=== PATIENT | male | born 1995 | race Caucasian/White ===

== ENCOUNTER 2016-11-17 15:31 | Emergency (ER) | payer MEDICAID ==
[~2016-11-17] VITALS: Ht 177.8 cm; Wt 69.4 kg
[2016-11-17 15:31] VITALS: BP 132/79
== END 2016-11-17 16:38 ==
LOC: EDBD 15:31 → ED 16:20
DX: S62.336A Displaced fracture of neck of fifth metacarpal bone, right hand, initial encounter for closed fracture (principal); V00.131A Fall from skateboard, initial encounter; Y93.51 Activity, roller skating (inline) and skateboarding; Y92.89 Other specified places as the place of occurrence of the external cause; Y99.8 Other external cause status
CPT/HCPCS: 29125; 99284

== ENCOUNTER 2016-11-28 18:43 | Emergency (ER) | payer SELFPAY ==
[~2016-11-28] VITALS: Ht 177.8 cm; Wt 69.5 kg
[2016-11-28 18:45] VITALS: BP 135/77
[2016-11-28] MEDS ORDERED: AZITHROMYCIN 500 MG TABLET ONE (19:13)
[2016-11-28] MEDS ORDERED: CEFTRIAXONE 250 MG ONE ×2 (19:13→19:46)
[2016-11-28] MEDS ORDERED: CEFTRIAXONE 250 MG IM ONE (19:30)
[2016-11-28] MEDS ORDERED: AZITHROMYCIN 500 MG TABLET PO ONE (19:30)
[2016-11-28 19:41] LABS: PATH.CAST-FLAG NOT PRESENT; SPERM-FLAG NOT PRESENT; SRC-FLAG NOT PRESENT; XTAL-FLAG NOT PRESENT; YLC-FLAG NOT PRESENT
[2016-11-28] MEDS ORDERED: AZITHROMYCIN 250 MG TABLET ONE (19:49)
== END 2016-11-28 20:03 | disposition home or self-care (01) ==
LOC: ED 19:55
DX: R36.9 Urethral discharge, unspecified (principal); Z88.0 Allergy status to penicillin
CPT/HCPCS: 81001; 87086; 87491; 87591; 96372; 99284; J0696

== ENCOUNTER 2018-02-19 16:59 | Emergency (ER) | payer SELFPAY ==
[2018-02-19 17:07] VITALS: BP 142/98
[2018-02-19] MEDS ORDERED: ALBUTEROL/IPRATROPIUM 2.5MG/0.5MG, 3 ML ONE (17:22)
[2018-02-19] MEDS ORDERED: ALBUTEROL/IPRATROPIUM 2.5MG/0.5MG, 3 ML NEB ONE (17:30)
== END 2018-02-19 18:24 ==
LOC: ED 18:18
DX: J18.9 Pneumonia, unspecified organism (principal)
CPT/HCPCS: 71046; 94640; 99283; J7620

== ENCOUNTER 2018-04-14 13:14 | Emergency (ER) | payer OTHER ==
[~2018-04-14] VITALS: Ht 175.3 cm; Wt 88.8 kg
[2018-04-14] MEDS ORDERED: KETOROLAC 30 MG/1 ML IM ONE (14:00)
[2018-04-14] MEDS ORDERED: DIAZEPAM 5 MG TABLET PO ONE (14:00)
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
[2018-04-14] MEDS ORDERED: KETOROLAC 30 MG/1 ML ONE (14:08)
[2018-04-14] MEDS ORDERED: DIAZEPAM 5 MG TABLET ONE (14:10)
[2018-04-14 14:30] VITALS: BP 107/64
--- NOTE | 2018-04-14 14:37 | NUR ---
PT TO CT
--- NOTE | 2018-04-14 14:37 | NUR ---
PT RESTING ON GURNEY, RESPS EVEN AND UNLABORED. LAUGHING WITH FRIEND. NO NEEDS AT THIS TIME. C SPINE PRECAUTIONS MAINTAINED.
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
== END 2018-04-14 15:51 | disposition home or self-care (01) ==
LOC: ED 15:30
DX: S16.1XXA Strain of muscle, fascia and tendon at neck level, initial encounter (principal); X58.XXXA Exposure to other specified factors, initial encounter; Y93.89 Activity, other specified; Y92.89 Other specified places as the place of occurrence of the external cause; Y99.8 Other external cause status; R51 Headache
CPT/HCPCS: 70450; 72125; 96372; 99284; J1885

== ENCOUNTER 2018-04-15 01:16 | Emergency (ER) | payer MEDICAID, OTHER ==
[~2018-04-15] VITALS: Ht 175.3 cm; Wt 91.9 kg
[2018-04-15 01:19] VITALS: BP 136/72
[2018-04-15] MEDS ORDERED: AZITHROMYCIN 250 MG TABLET PO STA (02:22)
[2018-04-15] MEDS ORDERED: CEFTRIAXONE 250 MG IM ONE (02:30)
[2018-04-15] MEDS ORDERED: AZITHROMYCIN 500 MG TABLET ONE (02:34)
[2018-04-15] MEDS ORDERED: CEFTRIAXONE 250 MG ONE (02:34)
--- NOTE | 2018-04-15 02:41 | NUR ---
Pt medicated per MAR.
== END 2018-04-15 02:53 | disposition home or self-care (01) ==
LOC: ED 02:41
DX: A56.01 Chlamydial cystitis and urethritis (principal); A54.01 Gonococcal cystitis and urethritis, unspecified; Z87.01 Personal history of pneumonia (recurrent)
CPT/HCPCS: 87491; 87591; 96372; 99283; J0696

== ENCOUNTER 2018-09-02 01:52 | Emergency (ER) | payer MEDICAID ==
[~2018-09-02] VITALS: Ht 175.3 cm; Wt 85.0 kg
[2018-09-02 01:53] VITALS: BP 131/70
[2018-09-02] MEDS ORDERED: APIX5TAB PO (01:58)
[2018-09-02] MEDS ORDERED: ONDANSETRON 4 MG TABLET PO ONE (02:00)
[2018-09-02] MEDS ORDERED: MAALOX/HYOSCYAMINE/LIDOCAINE 45 ML BTL PO ONE (03:00)
--- NOTE | 2018-09-02 03:04 | NUR ---
PT TO US VIA SANYA
[2018-09-02 04:00] LABS: BASOPHILS # (AUTO) 0.03 x10^3/uL (0-0.1); BASOPHILS % (AUTO) 0 % (0-1); EOSINOPHILS # (AUTO) 0.11 x10^3/uL (0-0.4); EOSINOPHILS % (AUTO) 1 % (1-7); LYMPHOCYTES # (AUTO) 1.96 x10^3/uL (1-3.4); LYMPHOCYTES % (AUTO) 19 % (22-44); MD NO; MEAN CORPUSCULAR HEMOGLOBIN 31.2 pg (27.5-34.5); MEAN CORPUSCULAR HGB CONC 33.9 g/dL (33.2-36.2); MEAN PLATELET VOLUME 8.4 fL (7.4-10.4); MONOCYTES # (AUTO) 0.65 x10^3/uL (0.2-0.8); MONOCYTES % (AUTO) 6 % (2-9); NEUTROPHILS # (AUTO) 7.54 x10^3/uL (1.8-6.8); NEUTROPHILS % (AUTO) 73 % (42-75); PLATELET COUNT 229 x10^3/uL (130-400); RED BLOOD COUNT 4.87 x10^6/uL (4.38-5.82); RED CELL DISTRIBUTION WIDTH 12.8 % (9.4-14.8)
[2018-09-02 04:06] LABS: ALANINE AMINOTRANSFERASE 29 U/L (12-78); ALBUMIN 4.2 g/dL (3.4-5.0); ANION GAP 4 mmol/L (5-15); CALCIUM 9.4 mg/dL (8.5-10.1); CHLORIDE 105 mmol/L (98-107); CREATININE 0.96 mg/dL (0.7-1.3)
[2018-09-02 04:08] LABS: ALKALINE PHOSPHATASE 93 U/L (45-117); BILIRUBIN,TOTAL 0.8 mg/dL (0.2-1.0)
[2018-09-02] MEDS ORDERED: KETOROLAC 30 MG/1 ML ONE (04:12)
[2018-09-02] MEDS ORDERED: MAALOX/HYOSCYAMINE/LIDOCAINE 45 ML BTL ONE (04:12)
--- NOTE | 2018-09-02 04:26 | NUR ---
BREAK RN: PT SLEEPING WITH RESP EVEN AND UNLABORED. NO S/S OF ACUTE DISTRESS. NO MEDS GIVEN AT THIS TIME.
[2018-09-02] MEDS ORDERED: KETOROLAC 30 MG/1 ML IM ONE (04:30)
--- NOTE | 2018-09-02 04:50 | NUR ---
GI COCKTAIL GIVEN AT THIS TIME. PT AWARE OF DISCHARGE INSTRUCITONS AND USE OF MEDICAITONS. PLEASANT YOUNG MAN, AMBULATE OUT WITH STEADY GAIT
== END 2018-09-02 04:53 | disposition home or self-care (01) ==
LOC: ED 03:00
DX: K29.00 Acute gastritis without bleeding (principal)
CPT/HCPCS: 36415; 71046; 76700; 80053; 83690; 85025; 93005; 99284; Q0162

== ENCOUNTER 2018-10-03 03:06 | Inpatient (IN) | payer MEDICAID ==
[~2018-10-03] VITALS: Ht 177.8 cm; Wt 87.0 kg
[2018-10-03 19:51] VITALS: BP 130/85
== END 2018-10-04 00:10 | disposition left against medical advice (07) | DRG 134 ==
LOC: ED 05:41 → EDIP 06:36 → 4WST 12:07
PROVIDERS: ADMIT Internal Medicine; ATTEND Internal Medicine
DX: I26.99 Other pulmonary embolism without acute cor pulmonale (principal); J96.00 Acute respiratory failure, unspecified whether with hypoxia or hypercapnia; D68.69 Other thrombophilia; R07.89 Other chest pain; Z82.49 Family history of ischemic heart disease and other diseases of the circulatory system; Z86.711 Personal history of pulmonary embolism; Z86.718 Personal history of other venous thrombosis and embolism; Z95.820 Peripheral vascular angioplasty status with implants and grafts
CPT/HCPCS: 36415; 71045; 71275; 80048; 80307; 82040; 84484; 85025; 85379; 85520; 85610; 85730; 93005; 96374; 96375; 99285; G0378; J1644; J1885; J2405; Q9967; J2270

== ENCOUNTER 2019-08-27 13:08 | Emergency (ER) | payer MEDICAID ==
[~2019-08-27] VITALS: Ht 175.3 cm; Wt 80.3 kg
[~2019-08-27 13:08] MED LIST: APIX5TAB PO
[2019-08-27] MEDS ORDERED: SODIUM CHLORIDE FLUSH 10ML SYR IVF ONE (14:00)
[2019-08-27 14:07] LABS: BASOPHILS # (AUTO) 0.02 x10^3/uL (0-0.1); BASOPHILS % (AUTO) 0 % (0-1); EOSINOPHILS # (AUTO) 0.09 x10^3/uL (0-0.4); EOSINOPHILS % (AUTO) 1 % (1-7); LYMPHOCYTES # (AUTO) 1.36 x10^3/uL (1-3.4); LYMPHOCYTES % (AUTO) 18 % (22-44); MD NO; MEAN CORPUSCULAR HEMOGLOBIN 30.6 pg (27.5-34.5); MEAN CORPUSCULAR HGB CONC 34.2 g/dL (33.2-36.2); MEAN PLATELET VOLUME 8.3 fL (7.4-10.4); MONOCYTES # (AUTO) 0.36 x10^3/uL (0.2-0.8); MONOCYTES % (AUTO) 5 % (2-9); NEUTROPHILS # (AUTO) 5.72 x10^3/uL (1.8-6.8); NEUTROPHILS % (AUTO) 76 % (42-75); PLATELET COUNT 314 x10^3/uL (130-400); RED BLOOD COUNT 4.95 x10^6/uL (4.38-5.82)
[2019-08-27 14:18] LABS: ALANINE AMINOTRANSFERASE 34 U/L (12-78); ALBUMIN 4.2 g/dL (3.4-5.0); ANION GAP 6 mmol/L (5-15); CALCIUM 9.3 mg/dL (8.5-10.1); CHLORIDE 106 mmol/L (98-107); CREATININE 0.99 mg/dL (0.7-1.3)
[2019-08-27 14:22] LABS: ALKALINE PHOSPHATASE 94 U/L (45-117); BILIRUBIN,TOTAL 0.6 mg/dL (0.2-1.0); TOTAL PROTEIN 7.6 g/dL (6.4-8.2); TROPONIN I < 0.015 ng/mL (0.000-0.045)
--- NOTE | 2019-08-27 14:42 | NUR ---
BREAK RN: PT UPRIGHT ON SANYA AWAKE & COMFORTABLE, RESPONDS APPROP TO STAFF, NAD/NO RESP DISTRESS, COMFORT MEASURES PROVIDED, CALL LIGHT WITHIN REACH. Addendum: 08/27/19 at 1446 by TC BREAK RN: PT UPRIGHT ON SANYA CALMLY RESTING WITH EYES CLOSED, RESPONDS APPROP TO STAFF, NO NEEDS AT THIS TIME, CALL LIGHT WITHIN REACH.
--- NOTE | 2019-08-27 15:31 | NUR ---
Pt transfered on gurjacqui to CT. HERNANDEZ. No needs expressed.
--- NOTE | 2019-08-27 15:42 | NUR ---
Pt back to room from CT. HERNANDEZ.
[2019-08-27] MEDS ORDERED: ACETAMINOPHEN 500 MG TABLET ONE (15:50)
--- NOTE | 2019-08-27 15:55 | NUR ---
Provided medications per EMAR. Pt appreciative. NADN. No other needs expressed. Call light within reach.
[2019-08-27] MEDS ORDERED: OMNIPAQUE 350 MG/ML, 75ML BOTTLE ONE (15:59)
[2019-08-27] MEDS ORDERED: ACETAMINOPHEN 500 MG TABLET PO ONE (16:00)
--- NOTE | 2019-08-27 17:51 | NUR ---
Patient given discharge instructions and they have confirmed that they understand the instructions. Patient ambulatory with steady gait. Pt left with d/c paperwork and all personal belongings. NADN. No needs expressed.
[2019-08-27 17:52] VITALS: BP 109/54
== END 2019-08-27 17:53 | disposition home or self-care (01) ==
LOC: ED 17:38
DX: R07.89 Other chest pain (principal); R91.1 Solitary pulmonary nodule; R94.31 Abnormal electrocardiogram [ECG] [EKG]; Z86.718 Personal history of other venous thrombosis and embolism
CPT/HCPCS: 36415; 71045; 71275; 80053; 84484; 85025; 93005; 99285; Q9967

== ENCOUNTER 2019-09-10 12:47 | Emergency (ER) | payer MEDICAID ==
[~2019-09-10] VITALS: Ht 175.3 cm; Wt 80.0 kg
[2019-09-10 13:15] VITALS: BP 128/74
--- NOTE | 2019-09-10 14:11 | NUR ---
pt seen and examined by more rodas, pt given dc instructions, script and wound care education. pt educated regarding rx for bactrim and keflex. pt a&o, resps even and unlabored, ambulatory to dc desk with steady gait. all questions answered.
== END 2019-09-10 14:08 | disposition home or self-care (01) ==
LOC: ED 13:35
DX: L03.113 Cellulitis of right upper limb (principal); I80.8 Phlebitis and thrombophlebitis of other sites; Z86.718 Personal history of other venous thrombosis and embolism
CPT/HCPCS: 99284

== ENCOUNTER 2019-09-18 02:37 | Emergency (ER) | payer MEDICAID ==
[2019-09-18 02:41] VITALS: BP 109/70
--- NOTE | 2019-09-18 02:46 | NUR ---
pt ambulates from triage to room with steady gait.
--- NOTE | 2019-09-18 04:06 | NUR ---
PT D/C WITH D/C SUMMARY AND SCRIPTS. ALL QUESTIONS ANSWERED. PT AMBULATES TO REGISTRATION DESK WITH STEADY GAIT FOR D/C HOME. PT DENIES ANY OTHER NEEDS PERTAINING TO THIS VISIT.
== END 2019-09-18 04:08 ==
LOC: ED 04:01
DX: L03.113 Cellulitis of right upper limb (principal); M25.521 Pain in right elbow; M79.631 Pain in right forearm; F11.10 Opioid abuse, uncomplicated; Z72.9 Problem related to lifestyle, unspecified; Z86.718 Personal history of other venous thrombosis and embolism
CPT/HCPCS: 99283

== ENCOUNTER 2019-12-15 04:22 | Emergency (ER) | payer MEDICAID ==
[~2019-12-15] VITALS: Ht 175.3 cm; Wt 85.0 kg
[2019-12-15] MEDS ORDERED: KETOROLAC 30 MG/1 ML ONE (04:53)
[2019-12-15] MEDS ORDERED: KETOROLAC 30 MG/1 ML IV ONE (05:00)
[2019-12-15] MEDS ORDERED: SODIUM CHLORIDE FLUSH 10ML SYR IVF ONE ×2 (05:00→06:00)
[2019-12-15 05:31] LABS: BASOPHILS % (AUTO) 0 % (0-1); EOSINOPHILS % (AUTO) 1 % (1-7); LYMPHOCYTES % (AUTO) 11 % (22-44); MEAN CORPUSCULAR HGB CONC 33.7 g/dL (33.2-36.2); MEAN PLATELET VOLUME 7.4 fL (7.4-10.4); MONOCYTES % (AUTO) 5 % (2-9); NEUTROPHILS % (AUTO) 83 % (42-75); PLATELET COUNT 367 x10^3/uL (130-400); RED BLOOD COUNT 4.66 x10^6/uL (4.38-5.82); RED CELL DISTRIBUTION WIDTH 12.8 % (9.4-14.8)
[2019-12-15 05:45] LABS: ALBUMIN 3.9 g/dL (3.4-5.0); ANION GAP 4 mmol/L (5-15); CALCIUM 9.1 mg/dL (8.5-10.1); CHLORIDE 106 mmol/L (98-107); CREATININE 1.02 mg/dL (0.7-1.3)
[2019-12-15] MEDS ORDERED: CLINDAMYCIN PMX 600MG/50ML 50 ML ONE (05:59)
[2019-12-15] MEDS ORDERED: CLINDAMYCIN PMX 600MG/50ML 50 ML IV ONE (06:00)
[2019-12-15] MEDS ORDERED: KETOROLAC 30 MG/1 ML IVPush ONE (06:00)
[2019-12-15 06:14] LABS: MD SCAN
--- NOTE | 2019-12-15 07:38 | NUR ---
REPORT FROM [employer] AT 0650. US RESULTS BACK, PT FOR RECHECK.
[2019-12-15 07:52] VITALS: BP 100/48
== END 2019-12-15 08:09 | disposition home or self-care (01) ==
LOC: ED 05:57
DX: L03.116 Cellulitis of left lower limb (principal); Z72.9 Problem related to lifestyle, unspecified; F11.10 Opioid abuse, uncomplicated; Z86.718 Personal history of other venous thrombosis and embolism
CPT/HCPCS: 36415; 73630; 80048; 82040; 85025; 93971; 96374; 96375; 99285; J1885